=== PATIENT | female | born 1995 | race Two or more races ===

== ENCOUNTER 2017-09-01 21:47 | Inpatient (IN) | payer MEDICAID, OTHER, SELFPAY ==
[~2017-09-01] VITALS: Ht 165.1 cm; Wt 126.1 kg
[2017-09-01 23:54] LABS: BASOPHILS # (AUTO) 0.13 x10^3/uL (0-0.3); BASOPHILS % (AUTO) 1 % (0-1); EOSINOPHILS # (AUTO) 0.11 x10^3/uL (0-0.8); EOSINOPHILS % (AUTO) 1 % (1-7); LYMPHOCYTES # (AUTO) 2.24 x10^3/uL (1-6.1); LYMPHOCYTES % (AUTO) 16 % (22-44); MD NO; MEAN CORPUSCULAR HEMOGLOBIN 29.3 pg (27.0-34.8); MEAN CORPUSCULAR HGB CONC 33.6 g/dL (32.4-35.8); MEAN PLATELET VOLUME 8.5 fL (7.4-10.4); MONOCYTES # (AUTO) 0.96 x10^3/uL (0-1.4); MONOCYTES % (AUTO) 7 % (2-9); NEUTROPHILS # (AUTO) 10.74 x10^3/uL (1.8-8.0); NEUTROPHILS % (AUTO) 76 % (42-75); PLATELET COUNT 333 x10^3/uL (130-400); RED BLOOD COUNT 5.39 x10^6/uL (3.82-5.3); RED CELL DISTRIBUTION WIDTH 13.1 % (9.6-15.2)
[2017-09-02 00:03] LABS: ALANINE AMINOTRANSFERASE 134 U/L (12-78); ALBUMIN 3.4 g/dL (3.4-5.0); ANION GAP 11 mmol/L (5-15); CALCIUM 9.7 mg/dL (8.5-10.1); CHLORIDE 107 mmol/L (98-107); CREATININE 1.08 mg/dL (0.55-1.02)
[2017-09-02 00:07] LABS: ALKALINE PHOSPHATASE 99 U/L (45-117); BILIRUBIN,TOTAL 0.8 mg/dL (0.2-1.0); TOTAL PROTEIN 7.8 g/dL (6.4-8.2)
[2017-09-02] MEDS ORDERED: SODIUM CHLORIDE 0.9% 1,000 ML IV ONE (03:07)
[2017-09-02] MEDS ORDERED: MORPHINE SULFATE 4 MG/ML, 1ML IVPush PRN (03:30)
[2017-09-02] MEDS ORDERED: ONDANSETRON 2MG/ML, 2ML IVPush PRN ×2 (03:30→17:30)
[2017-09-02 04:30] VITALS: BP 127/81
[2017-09-02] MEDS ORDERED: MORPHINE SULFATE 4 MG/ML, 1ML IV PRN (06:00)
[2017-09-02] MEDS ORDERED: CEFOTETAN PMX 2GM/50ML 50 ML IV SCH (06:00)
[2017-09-02] MEDS: D5%-0.45NACL+KCL 20MEQ 1,000 ML IV SCH ×2 (06:00→15:00)
[2017-09-02] MEDS ORDERED: ONDANSETRON 2MG/ML, 2ML IV PRN ×2 (06:00→19:00)
[2017-09-02 07:11] VITALS: BP 116/75
[2017-09-02 13:11] VITALS: BP 117/75
[2017-09-02] MEDS ORDERED: EPINEPHRINE 1 MG/ML, 1ML ONE (15:10)
[2017-09-02] MEDS ORDERED: BUPIVACAINE/PF 0.5% ONE (15:10)
[2017-09-02] MEDS ORDERED: FENTANYL PF 250 MCG/5ML ONE (15:44)
[2017-09-02] MEDS ORDERED: MIDAZOLAM 1 MG/ML, 2ML ONE (15:44)
[2017-09-02] MEDS ORDERED: ROCURONIUM 10 MG/ML,10ML ONE (16:02)
[2017-09-02] MEDS ORDERED: GLYCOPYRROLATE 0.2MG/1ML, 5ML ONE (16:02)
[2017-09-02] MEDS ORDERED: CEFOTETAN 2 GM ONE (16:02)
[2017-09-02] MEDS ORDERED: NEOSTIGMINE 1 MG/ML, 10ML ONE (16:02)
[2017-09-02] MEDS ORDERED: DEXAMETHASONE 4 MG/ML, 1ML ONE ×2 (16:13)
[2017-09-02] MEDS ORDERED: KETOROLAC 30 MG/1 ML ONE (16:13)
[2017-09-02] MEDS ORDERED: ONDANSETRON 2MG/ML, 2ML ONE ×3 (16:13→18:02)
[2017-09-02] MEDS ORDERED: BUPIVACAINE/PF 0.5% INFIL ONE (16:14)
[2017-09-02] MEDS ORDERED: HYDROmorphone 2 MG/ML, 1ML ONE (16:51)
[2017-09-02] MEDS ORDERED: ACETAMINOPHEN 325 MG TABLET PO PRN ×2 (17:30→19:00)
[2017-09-02] MEDS ORDERED: HYDROmorphone 1 MG/ML, 1ML IV PRN (17:30)
[2017-09-02] MEDS ORDERED: MEPERIDINE/PF 25MG/0.5ML IVPush PRN (17:30)
[2017-09-02] MEDS ORDERED: LABETALOL 5MG/ML, 20ML IV PRN (17:30)
[2017-09-02] MEDS ORDERED: PROMETHAZINE 25 MG/ML, 1ML IV PRN (17:30)
[2017-09-02] MEDS ORDERED: FENTANYL PF 100 MCG/2ML IV PRN (17:30)
[2017-09-02] MEDS ORDERED: OXYcodone 5 MG/5 ML ORAL.SOL UDC PO PRN (17:30)
[2017-09-02] MEDS ORDERED: hydrALAzine 20 MG/ML, 1ML IV PRN (17:30)
[2017-09-02] MEDS ORDERED: LORazepam 2 MG/ML, 1ML IVPush PRN (17:30)
[2017-09-02] MEDS ORDERED: DIPHENHYDRAMINE 25 MG CAPSULE PO PRN (19:00)
[2017-09-02] MEDS ORDERED: DIPHENHYDRAMINE 50 MG/ML, 1ML IV PRN (19:00)
[2017-09-02] MEDS ORDERED: ACETAMINOPHEN 650 MG SUPP PR PRN (19:00)
[2017-09-02] MEDS ORDERED: morphine SULFATE 10 MG/ML, 1ML IV PRN (19:00)
[2017-09-02] MEDS: POTASSIUM CHLORIDE 20 MEQ in D5%-0.45% NACL 1,000 ML IV SCH (19:39)
[2017-09-02 20:32] VITALS: BP 126/69
[2017-09-02] MEDS: OXYcodone/APAP 5/325MG TABLET PO PRN ×2 (21:10→21:48)
[2017-09-03 00:18] VITALS: BP 120/79
[2017-09-03] MEDS: OXYcodone/APAP 5/325MG TABLET PO PRN (01:36)
[2017-09-03 02:17] VITALS: BP 126/83
[2017-09-03] MEDS: POTASSIUM CHLORIDE 20 MEQ in D5%-0.45% NACL 1,000 ML IV SCH ×2 (03:05→11:10)
[2017-09-03 05:48] LABS: BASOPHILS % (AUTO) 1 % (0-1); EOSINOPHILS % (AUTO) 0 % (1-7); LYMPHOCYTES % (AUTO) 7 % (22-44); MD NO; MEAN CORPUSCULAR HEMOGLOBIN 29.6 pg (27.0-34.8); MEAN CORPUSCULAR HGB CONC 33.4 g/dL (32.4-35.8); MEAN CORPUSCULAR VOLUME 88.5 fL (80-100); MEAN PLATELET VOLUME 8.4 fL (7.4-10.4); MONOCYTES # (AUTO) 0.97 x10^3/uL (0-1.4); MONOCYTES % (AUTO) 6 % (2-9); NEUTROPHILS # (AUTO) 14.66 x10^3/uL (1.8-8.0); NEUTROPHILS % (AUTO) 87 % (42-75); PLATELET COUNT 290 x10^3/uL (130-400); RED CELL DISTRIBUTION WIDTH 13.4 % (9.6-15.2)
[2017-09-03] MEDS ORDERED: ENOXAPARIN 40 MG/0.4 ML SQ SCH (06:00)
[2017-09-03 06:55] LABS: ANION GAP 10 mmol/L (5-15); CALCIUM 8.6 mg/dL (8.5-10.1); CHLORIDE 106 mmol/L (98-107); CREATININE 0.97 mg/dL (0.55-1.02)
[2017-09-03 07:10] VITALS: BP 118/83
[2017-09-03 13:36] VITALS: BP 120/79
[2017-09-03] MEDS ORDERED: PROM12.55 PO (15:30)
[2017-09-03] MEDS ORDERED: HYDR-3241 PO (15:31)
== END 2017-09-03 15:38 | disposition home or self-care (01) | DRG 419 ==
LOC: ED 09-02 00:53 → EDIP 09-02 03:07 → 4NOR 09-02 03:52 → DCLOUNGE 09-03 15:34
PROVIDERS: ADMIT Surgery; ATTEND Surgery
PROC: 0FT44ZZ Resection of Gallbladder, Percutaneous Endoscopic Approach (ICD-10-PCS; principal; 2017-09-02 15:30)
DX: K80.00 Calculus of gallbladder with acute cholecystitis without obstruction (principal); K76.0 Fatty (change of) liver, not elsewhere classified
CPT/HCPCS: 36415; 76700; 80048; 80053; 82040; 83690; 84703; 85025; 88304; 93005; 99285; J0171; J1100; J1170; J1650; J1885; J2250; J2405; J2710; J3010; J3480; J3490; J7030; S0074